=== PATIENT | male | born 1995 | race Two or more races ===

== ENCOUNTER 2016-11-27 11:18 | Emergency (ER) | payer OTHER ==
[~2016-11-27] VITALS: Ht 180.3 cm; Wt 107.0 kg
[2016-11-27 12:01] VITALS: BP 147/88
[2016-11-27] MEDS ORDERED: PREDNISONE 20MG TABLET PO ONE (16:00)
[2016-11-27] MEDS ORDERED: IBUPROFEN 600MG TABLET PO ONE (16:00)
[2016-11-27] MEDS ORDERED: DIPHENHYDRAMINE 25MG CAPSULE PO ONE (16:00)
[2016-11-27 17:15] LABS: CLARITY URINE CLEAR (CLEAR); COLOR URINE YELLOW (YELLOW); GLUCOSE URINE NEGATIVE (NEGATIVE); KETONES URINE NEGATIVE (NEGATIVE); LEUKOCYTE ESTERASE URINE NEGATIVE (NEGATIVE); NITRITE URINE NEGATIVE (NEGATIVE); OCCULT BLOOD URINE NEGATIVE (NEGATIVE); PROTEIN URINE NEGATIVE (NEGATIVE); SPECIFIC GRAVITY URINE 1.023 (1.005-1.030)
== END 2016-11-27 17:52 | disposition home or self-care (01) ==
LOC: ER 15:51
DX: N48.1 Balanitis (principal); R03.0 Elevated blood-pressure reading, without diagnosis of hypertension
CPT/HCPCS: 81003; 99284; J7512; Q0163